=== PATIENT | male | born 1955 | race Caucasian/White ===

== ENCOUNTER 2017-12-10 22:04 | Inpatient (IN) | payer SELFPAY ==
[~2017-12-10] VITALS: Ht 175.3 cm; Wt 82.5 kg
[2017-12-11] VITALS (7 sets, daily range): BP systolic 134–194; BP diastolic 74–89
[2017-12-11] MEDS ORDERED: LOSARTAN POTASSIUM 50 MG TABLET PO ONE
[2017-12-11 00:45] LABS: BASOPHILS % 0.7 % (0.0-2.0); EOSINOPHILS % 1.9 % (0.0-5.0); HEMATOCRIT. 42.2 % (42.0-52.0); HEMOGLOBIN. 14.1 g/dL (14.0-18.0); LYMPHOCYTES % 37.1 % (20.0-50.0); MEAN CORPUSCULAR HEMOGLOBIN 29.2 pg (28.0-32.0); MEAN CORPUSCULAR VOLUME 87.3 fL (80.0-94.0); MEAN PLATELET VOLUME 9.8 fl (7.4-10.4); MONOCYTES % 11.9 % (2.0-8.0); NEUTROPHILS % 48.4 % (40.0-76.0); PLATELET 172 x1000/uL (130-400); RED BLOOD CELL COUNT 4.84 mill/uL (4.7-6.1); RED CELL DISTRIBUTION WIDTH 14.1 % (11.6-14.6)
[2017-12-11 00:56] LABS: CHLORIDE 104 mEq/L (98-107)
[2017-12-11] MEDS ORDERED: ENALAPRIL 2.5MG/2ML VIAL 2ML IV ONE ×2 (05:00)
[2017-12-11] MEDS ORDERED: LOSA50TA20 MT (06:23)
[2017-12-11] MEDS ORDERED: IOHEXOL-350 100 ML BOTTLE ONE (06:35)
[2017-12-11] MEDS ORDERED: ACETAMINOPHEN 325MG TABLET PO PRN (11:15)
[2017-12-11] MEDS ORDERED: LOSARTAN POTASSIUM 50 MG TABLET PO SCH (11:15)
[2017-12-11] MEDS ORDERED: ONDANSETRON HCL 4MG/2ML INJ IV PRN (11:15)
[2017-12-11] MEDS ORDERED: MAGNESIUM/ALUMINUM HYDROXIDE/SIMETHICONE 30ML UDC PO PRN (11:15)
[2017-12-11] MEDS: SODIUM CHLORIDE 0.9% INJ 3ML FLUSH IVF SCH ×2 (15:16→21:14)
[2017-12-11] MEDS: CLONIDINE 0.1MG TABLET PO PRN ×2 (16:21→23:51)
[2017-12-11] MEDS ORDERED: HYDRALAZINE 20MG/ML VIAL IV PRN (17:15)
[2017-12-11] MEDS: AMLODIPINE 10MG TABLET PO SCH (18:14)
[2017-12-11] MEDS: LOSARTAN POTASSIUM 50 MG TABLET PO SCH (20:16)
[2017-12-12] VITALS: BP 182/83
[2017-12-12 04:00] VITALS: BP 118/61
[2017-12-12] MEDS: SODIUM CHLORIDE 0.9% INJ 3ML FLUSH IVF SCH (06:08)
[2017-12-12 08:00] VITALS: BP 112/51
[2017-12-12] MEDS: AMLODIPINE 10MG TABLET PO SCH (09:45)
[2017-12-12] MEDS: LOSARTAN POTASSIUM 50 MG TABLET PO SCH (09:45)
[2017-12-12 12:00] VITALS: BP 142/71
[2017-12-12 13:59] VITALS: BP 65/142
== END 2017-12-12 14:40 | disposition home or self-care (01) | DRG 199 ==
LOC: ER 22:04 → 5WST 12-11 03:05 → EDBEDREQ 12-11 03:09 → EDBEDREQTM 12-11 03:09 → ENRESERV 12-11 03:26
PROVIDERS: ADMIT Internal Medicine; ATTEND Internal Medicine
DX: I10 Essential (primary) hypertension (principal); Z79.899 Other long term (current) drug therapy; Z82.49 Family history of ischemic heart disease and other diseases of the circulatory system
CPT/HCPCS: 36415; 71045; 71275; 80048; 84484; 93005; 96374; 96376; 99285; J3490; Q9967